=== PATIENT | female | born 1990 | race Caucasian/White ===

== ENCOUNTER 2018-08-18 05:26 | Inpatient (IN) ==
[2018-08-18] MEDS ORDERED: ceFAZolin SODIUM/DEXTROSE,ISO 2 GM/50 ML BAG IV ONE (05:37)
[2018-08-18] MEDS ORDERED: OXYTOCIN 20 UNITS in RINGER'S SOLUTION,LACTATED 1,000 ML IV ONE ×2 (05:37→09:21)
[2018-08-18] MEDS ORDERED: RINGER'S SOLUTION,LACTATED 1,000 ML IV PRN (05:37)
[2018-08-18] MEDS: RINGER'S SOLUTION,LACTATED 1,000 ML IV PRN (06:45)
[2018-08-18 06:55] LABS: Cocaine Ur Negative (NEGATIVE); Urine Barbiturate Negative (NEGATIVE); Urine Benzodiazepines Negative (NEGATIVE); Urine Opiates Negative (NEGATIVE); Urine PCP Negative (NEGATIVE); Urine THC Negative (NEGATIVE)
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
[2018-08-18] MEDS ORDERED: ONDANSETRON HCL/PF 2 MG/ML VIAL IV PRN (09:21)
[2018-08-18] MEDS ORDERED: RINGER'S SOLUTION,LACTATED 1,000 ML IV ONE (09:21)
[2018-08-18] MEDS ORDERED: HYDROcodone/ACETAMINOPHEN 1 EACH TABLET PO PRN (09:21)
[2018-08-18] MEDS ORDERED: SENNOSIDES 8.6 MG TABLET PO PRN (09:21)
[2018-08-18] MEDS ORDERED: KETOROLAC TROMETHAMINE 30 MG/ML VIAL IV PRN (09:21)
[2018-08-18] MEDS ORDERED: SIMETHICONE 80 MG TAB.CHEW PO PRN (09:21)
[2018-08-18] MEDS ORDERED: BISACODYL 10 MG SUPP.RECT RC PRN (09:21)
--- NOTE | 2018-08-18 09:44 | OR ---
Operative Report - Dictated Report Narrative: Date of procedure: 08/18/2018 Time of delivery: 08 Gender: male APGARS: 8/8 weight: 3336 grams Surgeon: Dr. Roman Anesthesia: combined spinal epidural Procedure: repeat delivery Description of the procedure: The patient was taken to the operating room where a combined spinal epidural was placed by anesthesia. She was then prepped and draped in the supine position in the standard surgical fashion. The patient was tested to ensure adequate anesthesia. A Pfannestiel skin incision was made and the incision was carried through the subcutaneous tissue. The fascia was incised in the midline. The fascial incision was extended sharply. The fascia was from the underlying rectus muscle. The rectus muscles were in the midline. The peritoneum was entered sharply and then extended bluntly. A large Kade retractor was placed. The lower uterine segment was incised in a low transverse fashion after identifying the bladder and the incision was made well away from the bladder. The uterine incision was extended bluntly. The membranes were ruptured and clear fluid was noted. The head was delivered without difficulty. A loose nuchal cord was noted and it was reduced prior to the delivery of the rest of the body. The shoulders were delivered without difficulty followed by the rest of the 's body. The cord was clamped and cut and the infant was handed off to the attending pediatric staff. The placenta was delivered by expression and appeared intact. The uterus was cleared of all clots and debris. The uterine incision was closed with a running locking suture of 0-vicryl. Additional hemostasis was obtained with 3 figure of eight vicryl sutures. A hematoma was noted on the left side of the incision and it was not expanding. The bladder surface peritoneum was made hemostatic. The Kade retractor was removed from the abdomen. The uterine incision was reinspected and found to be hemostatic. The hematoma was reinspected and not expanding. The fascia was inspected and made hemostatic as were the rectus muscles. The fascia was closed with a 1-0 vicryl. The subcutaneous tissue was irrigated and made hemostatic. The skin was closed with 3-0 monocryl. The suture developed a knot more than half way through closure so the suture was tied and a second closure was began from the other end of the incision. The second suture was tied and the knot was buried. Doran lewis was placed over the incision and a pressure dressing was applied. All sponge, lap, and needle counts were correct. The patient tolerated the procedure well. She was transferred to the recovery room in stable condition. EBL: 600 mL Complications: none Specimens: placenta
[2018-08-18] MEDS: BUPIVACAINE HCL/0.9 % NACL/PF 250 ML EP PRN ×2 (09:59→22:14)
[2018-08-18] MEDS ORDERED: RHO(D) IMMUNE GLOBULIN 1,500 UNIT SYRINGE IM ONE (11:09)
--- NOTE | 2018-08-18 11:59 | ANES ---
Post Anesthesia Discharge - Transfer of Care Transfer of Care handoff given to nurse: Yes - Discharge from PACU Discharge from PACU when meets criteria: Yes - Discharge to ASU Discharge to ASU-no complications/pt stable: Yes
--- NOTE | 2018-08-18 12:00 | ANES ---
Post Anesthesia Assessment - Vital Signs Vitals: Last Vital Signs Temp 36.6 C 08/18/18 09:40 Pulse 59 L 08/18/18 09:40 Resp 16 08/18/18 09:40 BP 114/50 08/18/18 09:40 Pulse Ox 99 08/18/18 09:40 Airway Patency: Normal - Mental Status Level Of Consciousness: Awake, Alert, Appropriate - Pain Level Pain Score: 5 - N/V Assessment Nausea/Vomiting Presence: None Dehydration:: No
[2018-08-18] MEDS: DOCUSATE SODIUM 100 MG CAPSULE PO SCH (21:12)
[2018-08-19] MEDS: RINGER'S SOLUTION,LACTATED 1,000 ML IV PRN (06:21)
[2018-08-19] MEDS: DOCUSATE SODIUM 100 MG CAPSULE PO SCH ×2 (09:55→20:22)
--- NOTE | 2018-08-19 09:55 | PN ---
Subjective - Date and Time Seen Date: 08/19/18 Time: 09:52 Subjective Narrative: Patient without complaints Objective Objective Narrative: See vital signs - Review of Systems Generalized/Overall Review: Reports: No Symptoms Reported Misc: All systems neg except as marked - Vitals Vitals: Last Vital Signs Temp 36.6 C 08/19/18 04:24 Pulse 69 08/19/18 04:24 Resp 16 08/19/18 04:24 BP 111/56 08/19/18 04:24 Pulse Ox 97 08/19/18 04:24 - Exam Constitutional: Present: Alert, Oriented x3, Cooperative, No distress Abdomen: Present: soft, nontender, nondistended Extremity: Present: non-tender, no calf tenderness Skin Exam: Present: normal color, warm/dry, no cyanosis Appearance: Present: appropriate appearance Eye contact: Present: cooperative Thoughts: Present: normal thought pattern Cauti Physician Documentation - Urinary Catheter Management Urethral (Flores) Urethral Indwelling: No Date of Insertion: 08/18/18 Time of Insertion: 08:30 Assessment/Plan Plan Narrative: POD 1 s/p repeat delivery Doing well Discharge POD 3
[2018-08-19] MEDS: HYDROcodone/ACETAMINOPHEN 1 EACH TABLET PO PRN ×5 (11:04→23:29)
[2018-08-19] MEDS: IBUPROFEN 800 MG TABLET PO PRN ×3 (11:04→23:30)
[2018-08-19] MEDS: FLUoxetine HCL 20 MG CAPSULE PO SCH (11:10)
[2018-08-19] MEDS: diphenhydrAMINE HCL 25 MG CAPSULE PO PRN ×2 (14:52→20:22)
[2018-08-20] MEDS: HYDROcodone/ACETAMINOPHEN 1 EACH TABLET PO PRN ×6 (02:57→23:41)
[2018-08-20] MEDS: IBUPROFEN 800 MG TABLET PO PRN ×3 (07:10→19:35)
--- NOTE | 2018-08-20 09:01 | PN ---
Subjective - Date and Time Seen Date: 08/20/18 Time: 09:00 Subjective Narrative: Patient without complaints Objective Objective Narrative: See vital signs - Review of Systems Generalized/Overall Review: Reports: No Symptoms Reported Misc: All systems neg except as marked - Vitals Vitals: Last Vital Signs Temp 36.3 C 08/20/18 07:16 Pulse 62 08/20/18 07:16 Resp 14 08/20/18 07:16 BP 106/55 08/20/18 07:16 Pulse Ox 99 08/20/18 07:16 - Exam Constitutional: Present: Alert, Oriented x3, Cooperative, No distress Abdomen: Present: soft, nontender, nondistended - dressing c/d/i Extremity: Present: non-tender, no calf tenderness Skin Exam: Present: normal color, warm/dry, no cyanosis Appearance: Present: appropriate appearance Eye contact: Present: cooperative Thoughts: Present: normal thought pattern Cauti Physician Documentation - Urinary Catheter Management Urethral (Flores) Urethral Indwelling: No Date of Insertion: 08/18/18 Time of Insertion: 08:30 Assessment/Plan Plan Narrative: POD 2 s/p delivery Doing well Discharge tomorrow
[2018-08-20] MEDS: DOCUSATE SODIUM 100 MG CAPSULE PO SCH ×2 (10:36→20:01)
[2018-08-20] MEDS: FLUoxetine HCL 20 MG CAPSULE PO SCH (10:36)
[2018-08-20] MEDS: diphenhydrAMINE HCL 25 MG CAPSULE PO PRN (23:41)
[2018-08-21] MEDS: IBUPROFEN 800 MG TABLET PO PRN ×4 (01:55→21:31)
[2018-08-21] MEDS: HYDROcodone/ACETAMINOPHEN 1 EACH TABLET PO PRN ×5 (02:56→21:32)
--- NOTE | 2018-08-21 08:03 | PN ---
Subjective - Date and Time Seen Date: 08/21/18 Time: 08:02 Subjective Narrative: Patient without complaints Objective Objective Narrative: See vital signs - Review of Systems Generalized/Overall Review: Reports: No Symptoms Reported Misc: All systems neg except as marked - Vitals Vitals: Last Vital Signs Temp 36.5 C 08/21/18 07:30 Pulse 51 L 08/21/18 07:30 Resp 18 08/21/18 07:30 BP 124/59 08/21/18 07:30 Pulse Ox 99 08/21/18 07:30 - Exam Constitutional: Present: Alert, Oriented x3, Cooperative, No distress Abdomen: Present: soft, nontender, nondistended - incision c/d/i Extremity: Present: non-tender, no calf tenderness Skin Exam: Present: normal color, warm/dry, no cyanosis Appearance: Present: appropriate appearance Eye contact: Present: cooperative Thoughts: Present: normal thought pattern Cauti Physician Documentation - Urinary Catheter Management Urethral (Flores) Urethral Indwelling: No Date of Insertion: 08/18/18 Time of Insertion: 08:30 Assessment/Plan Plan Narrative: POD 3 s/p delivery Doing well Discharge today
[2018-08-21] MEDS: DOCUSATE SODIUM 100 MG CAPSULE PO SCH ×2 (08:24→21:05)
[2018-08-21] MEDS: FLUoxetine HCL 20 MG CAPSULE PO SCH (08:24)
[2018-08-21] MEDS ORDERED: diphenhydrAMINE HCL 50 MG CAPSULE PO ONE (14:44)
[2018-08-21] MEDS ORDERED: FLUoxetine HCL 20 MG CAPSULE PO ONE (14:45)
[2018-08-21] MEDS ORDERED: FLUoxetine HCL 20 MG CAPSULE PO SCH (14:45)
[2018-08-21 19:01] VITALS: BP 112/56
[2018-08-21] MEDS: diphenhydrAMINE HCL 25 MG CAPSULE PO PRN (21:31)
[2018-08-22] MEDS ORDERED: FLUoxetine HCL 20 MG CAPSULE PO SCH (09:00)
== END 2018-08-21 23:59 | disposition home or self-care (01) | DRG 787 ==
LOC: OB 05:26
PROVIDERS: ADMIT Obstetrics & Gynecology; ATTEND Obstetrics & Gynecology
CPT/HCPCS: 59025; 80307; 85460; 86850; 86870; 88307; J2790